=== PATIENT | male | born 2000 | race Caucasian/White ===

== ENCOUNTER 2020-04-10 19:59 | Observation (INO) | payer BC ==
[2020-04-10] MEDS ORDERED: Sodium Chloride 0.9% 1,000 ML IV ONE (20:09)
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
[2020-04-10 20:50] LABS: BLOOD UREA NITROGEN,BUN 15 mg/dL (7.0-18.0); CARBON DIOXIDE,CO2 25.7 mmol/L (21.0-32.0); CHLORIDE,CL 103 mmol/L (98-107); GLUCOSE RANDOM 86 mg/dL (74-106); POTASSIUM,K 4.3 mmol/L (3.5-5.1); SODIUM,NA 142 mmol/L (136-148)
[2020-04-10] MEDS ORDERED: Sodium Chloride 0.9% 2.5 ML Syringe FLUSH PRN (22:33)
[2020-04-10] MEDS ORDERED: Sodium Chloride 0.9% 10 ML Syringe FLUSH PRN (22:33)
--- NOTE | 2020-04-10 22:34 | EDM.PDOC ---
ED HPI GENERAL MEDICAL PROBLEM - General Chief Complaint: Trauma Stated Complaint: HEAD INJURY - EMS ARRIVAL Time Seen by Provider: 04/10/20 21:08 - History of Present Illness INITIAL COMMENTS - FREE TEXT/NARRATIVE: HISTORY AND PHYSICAL: History of present illness: This is a 19-year-old healthy gentleman who presents the ER today by EMS secondary to a witnessed seizure following head trauma with LOC prior to arrival. Patient reports he is never rollerblading before and he put on his friends rollerblades and fell backwards and struck the back of his head against pavement. This resulted in positive LOC with subsequent seizure activity described as tonic-clonic activity by his friends. Patient was having seizure for approximately 30 to 60 seconds. Upon arrival to the ED EMS reports that the patient is currently alert awake and oriented 3 and back to his baseline. Patient denies any history of prior seizure activity. Patient denies any history of hypertension, diabetes, liver, lung, kidney problems. Patient denies any prior abdominal or chest surgeries. Patient has no known drug allergies. Patient denies any tobacco alcohol or drugs. 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 Tetanus status up-to-date Review of systems: As per history of present illness and below otherwise all systems reviewed and negative. Past medical history: As per history of present illness and as reviewed below otherwise noncontributory. Surgical history: As per history of present illness and as reviewed below otherwise noncontributory. Social history: No reported history of drug or alcohol abuse. Family history: As per history of present illness and as reviewed below otherwise noncontributory. Physical exam: HEENT: Atraumatic, normocephalic, pupils reactive, negative for conjunctival pallor or scleral icterus, mucous membranes moist, throat clear, neck supple, nontender, trachea midline. Lungs: Clear to auscultation, breath sounds equal bilaterally, chest nontender. Heart: S1S2, regular, negative for clicks, rubs, or JVD. Abdomen: Soft, nondistended, nontender. Negative for masses or hepatosplenomegaly. Negative for costovertebral tenderness. Pelvis: Stable nontender. Genitourinary: Deferred. Rectal: Deferred. Extremities: Atraumatic, negative for cords or calf pain. Neurovascular unremarkable. Neuro: Awake, alert, oriented. Cranial nerves II through XII unremarkable. Cerebellum unremarkable. Motor and sensory unremarkable throughout. Exam nonfocal. PRIMARY SURVEY: -A: Intact airway -B: Equal breath sounds bilaterally, CTAB without W/R/R, nonlabored -C: RRR without M/R/G, normal S1/S2, 2+ distal pulses palpable in radials, femorals and DP/PTs bilaterally -D: GCS 15 (E: 4, V: 5, M: 6), HAILE x4 without deficit, sensation grossly intact -E: No rashes, or bruises. With laceration approximately 3 cm to his posterior scalp. SECONDARY SURVEY: -NEURO: A&Ox3, CN II-XII grossly intact, 5/5 strength in bilateral change attendant, plantarflexion and dorsiflexion. Grossly normal sensation x4 extremities. -HEAD: NCAT, no gross palpable skull deformities/tenderness, no periorbital or mastoid ecchymosis. 3 cm laceration posterior scalp -EYES: PERRLA from 3 to 2, tracking, EOMI grossly, sclera noninjected -ENT: No hemotympanum, no epistaxis, no septal hematoma, midface stable to manipulation, no blood in oropharynx, dentition intact no anterior neck injury/ crepitus/tenderness. -NECK: No cervical midline tenderness, no step offs/deformities, trachea midline, no JVD -CHEST: Non-tender, no crepitus, no abrasions/ecchymosis, equal chest movement -ABDOMEN: Soft, non-distended, nontender, no abrasions/ecchymosis -PELVIS: Stable to palpation, nontender, no abrasions/ecchymosis -RECTAL: Deferred -EXTREMITIES: No gross deformities, no abrasions/ecchymosis noted, 2+ radial/ femoral/DP/PT pulses present bilaterally -BACK/SPINE: No step offs/deformities or tenderness to palpation of thoracic/ lumbar spine, no abrasion/ecchymosis noted. Diagnostics: ET scan of head reveals no acute bleed or trauma. CT scan of C-spine reveals no acute fracture or step-off. CBC, CMP, alcohol level all within normal limits. Therapeutics: Patient given Tylenol consistent with his pain. Laceration of scalp sutured in ED. Impression: This is a 19-year-old gentleman who sustained a head injury earlier today resulting in positive LOC and seizure activity that was limited to approximately 1 minute. Patient is currently back to baseline mentation. Given the degree of injury with new onset seizure secondary to trauma, case was discussed with our surgery attending Dr. Orta who is agreed to admit patient for observation. This was discussed with the patient and he is currently in agreement with this plan. Plan: Patient will be admitted for observation Definitive disposition and diagnosis as appropriate pending reevaluation and review of above. head area Pain Score (Numeric/FACES): 5 - Related Data Allergies Allergy/AdvReac Type Severity Reaction Status Date / Time No Known Allergies Allergy Verified 04/10/20 20:05 Home Meds: Home Meds . [No Known Home Meds] 04/10/20 [History] Past Medical History HEENT History: Reports: None Cardiovascular History: Reports: None Respiratory History: Reports: None Gastrointestinal History: Reports: None Genitourinary History: Reports: None Musculoskeletal History: Reports: None Neurological History: Reports: None Psychiatric History: Reports: None Endocrine/Metabolic History: Reports: None Insulin Pump Model and Alarm Service Technician: None Hematologic History: Reports: None Immunologic History: Reports: None Oncologic (Cancer) History: Reports: None Dermatologic History: Reports: None - Infectious Disease History Infectious Disease History: Reports: None - Past Surgical History Head Surgeries/Procedures: Reports: None Social & Family History - Family History Family Medical History: Noncontributory - Tobacco Use Smoking Status *Q: Never Smoker - Recreational Drug Use Recreational Drug Use: No Review of Systems - Review of Systems Review Of Systems: Comprehensive ROS is negative, except as noted in HPI. ED EXAM, GENERAL - Physical Exam Exam: See Below Course - Vital Signs Last Recorded V/S: Last Vital Signs Temp 98.3 F 04/10/20 20:00 Pulse 94 04/10/20 20:00 Resp 18 04/10/20 20:00 BP 142/78 H 04/10/20 20:00 Pulse Ox 98 04/10/20 20:00 - Orders/Labs/Meds Orders: Active Orders 24 hr Category Date Time Status DRUG SCREEN, URINE [URCHEM] Stat Lab 04/10/20 20:07 Ordered UA W/O MICROSCOPIC [URIN] Stat Lab 04/10/20 20:10 Ordered Labs: Laboratory Tests 04/10/20 04/10/20 Range/Units 20:20 20:20 WBC 6.34 (4.0-11.0) K/uL RBC 5.25 (4.50-5.90) M/uL Hgb 16.0 (13.0-17.0) g/dL Hct 47.0 (38.0-50.0) % MCV 89.5 (80.0-98.0) fL MCH 30.5 (27.0-32.0) pg MCHC 34.0 (31.0-37.0) g/dL RDW Std Deviation 39.3 (28.0-62.0) fl RDW Coeff of Zia 12 (11.0-15.0) % Plt Count 201 (150-400) K/uL MPV 10.50 (7.40-12.00) fL Nucleated RBC % 0.0 /100WBC Nucleated RBCs # 0 K/uL Sodium 142 (136-148) mmol/L Potassium 4.3 (3.5-5.1) mmol/L Chloride 103 (98-107) mmol/L Carbon Dioxide 25.7 (21.0-32.0) mmol/L BUN 15 (7.0-18.0) mg/dL Creatinine 1.1 (0.8-1.3) mg/dL Est Cr Clr Drug Dosing 118.56 mL/min Estimated GFR (MDRD) > 60.0 ml/min Glucose 86 (74-106) mg/dL Calcium 9.3 (8.5-10.1) mg/dL Total Bilirubin 0.4 (0.2-1.0) mg/dL AST 32 (15-37) IU/L ALT 33 (14-63) IU/L Alkaline Phosphatase 81 (46-116) U/L Total Protein 7.2 (6.4-8.2) g/dL Albumin 4.2 (3.4-5.0) g/dL Globulin 3.0 (2.6-4.0) g/dL Albumin/Globulin Ratio 1.4 (0.9-1.6) Prolactin 18.8 ng/mL Ethyl Alcohol < 3.0 mg/dL Meds: Medications Discontinued Medications Generic Name Dose Route Start Last Admin Trade Name Freq PRN Reason Stop Dose Admin Sodium Chloride 1,000 mls @ 999 mls/hr 04/10/20 20:09 04/10/20 20:26 Normal Saline IV 04/10/20 21:09 999 mls/hr .Bolus ONE Administration Departure - Departure Time of Disposition: 22:35 Disposition: Admitted As Inpatient 66 Condition: Good Clinical Impression: Concussion with brief (less than one hour) loss of consciousness, Post traumatic seizure, Laceration of scalp - Discharge Information *PRESCRIPTION DRUG MONITORING PROGRAM REVIEWED*: Not Applicable *COPY OF PRESCRIPTION DRUG MONITORING REPORT IN PATIENT ZAIRA: Not Applicable Sepsis Event Note (ED) - Evaluation Sepsis Screening Result: No Definite Risk - Focused Exam Vital Signs: Vital Signs Temp Pulse Resp BP Pulse Ox 04/10/20 20:00 98.3 F 94 18 142/78 H 98 - My Orders Last 24 Hours: My Active Orders 04/10/20 20:07 DRUG SCREEN, URINE [URCHEM] Stat 04/10/20 20:10 UA W/O MICROSCOPIC [URIN] Stat - Assessment/Plan Last 24 Hours: My Active Orders 04/10/20 20:07 DRUG SCREEN, URINE [URCHEM] Stat 04/10/20 20:10 UA W/O MICROSCOPIC [URIN] Stat
--- NOTE | 2020-04-11 07:53 | PCM.HP.2 ---
H&P History of Present Illness - General Date of Service: 04/11/20 Admit Problem/Dx: Admission Diagnosis/Problem Admission Diagnosis/Problem Head injury with loss of consciousness Source of Information: Patient History Limitations: Reports: No Limitations - History of Present Illness Initial Comments - Free Text/Narative: Patient is a 19-year-old gentleman who was roller skating [place] the [employer] [place] with friends. He was not used to skating is going downhill when he lost his balance. He fell and struck his head. Reports from EMS, or that he did have some seizure activity. He was transported by EMS to the hospital for evaluation and was seen in the emergency room. He did have a laceration on the back of his head that was repaired in the emergency room. There was loss of consciousness associated with this. The length of time is unknown. He does remember falling and then the next thing he remembers is being in the ambulance. He has had no further seizure activity while in the hospital. This morning he denies any headache. Symptom Onset Date: 04/10/20 Duration of Symptoms: Reports: Hour(s): Location: Reports: Head Quality: Reports: Dull Severity: Mild Improves with: Reports: Rest Worsens with: Reports: None Context: Denies: Sick Contact, Activity/Exercise, Lifting, Exertion Associated Symptoms: Denies: Confusion, Nausea/Vomiting head area Pain Score (Numeric/FACES): 3 - Related Data Allergies/Adverse Reactions: Allergies Allergy/AdvReac Type Severity Reaction Status Date / Time No Known Allergies Allergy Verified 04/10/20 23:28 Home Medications: Home Meds . [No Known Home Meds] 04/10/20 [History] Past Medical History HEENT History: Reports: None Cardiovascular History: Reports: None Respiratory History: Reports: None Gastrointestinal History: Reports: None Genitourinary History: Reports: None Musculoskeletal History: Reports: None Neurological History: Reports: None Psychiatric History: Reports: None Endocrine/Metabolic History: Reports: None Insulin Pump Model and Electric Organ Inspector And Repairer: None Hematologic History: Reports: None Immunologic History: Reports: None Oncologic (Cancer) History: Reports: None Dermatologic History: Reports: None - Infectious Disease History Infectious Disease History: Reports: None - Past Surgical History Head Surgeries/Procedures: Reports: None HEENT Surgical History: Reports: Other (See Below) Other HEENT Surgeries/Procedures: [place] Tooth Surgery Social & Family History - Family History Family Medical History: Noncontributory - Tobacco Use Smoking Status *Q: Never Smoker - Caffeine Use Caffeine Use: Reports: Soda - Recreational Drug Use Recreational Drug Use: No H&P Review of Systems - Review of Systems: Review Of Systems: See Below General: Denies: Fever, Chills, Malaise HEENT: Denies: Headaches, Hearing Changes, Vertigo, Visual Changes Pulmonary: Denies: Shortness of Breath, Wheezing Cardiovascular: Denies: Chest Pain Gastrointestinal: Reports: No Symptoms Genitourinary: Reports: No Symptoms Musculoskeletal: Reports: No Symptoms Skin: Reports: No Symptoms Psychiatric: Reports: No Symptoms Neurological: Reports: No Symptoms Hematologic/Lymphatic: Reports: No Symptoms Immunologic: Reports: No Symptoms Exam - Exam Exam: See Below - Vital Signs Vital Signs: Last Vital Signs Temp 97.8 F 04/11/20 07:40 Pulse 66 04/11/20 07:40 Resp 18 04/11/20 07:40 BP 106/66 04/11/20 07:40 Pulse Ox 97 04/11/20 07:40 Weight: 142 lb 14.4 oz - Exam Quality Assessment: No: Supplemental Oxygen, Central Line/PICC, Skin Breakdown General: Alert, Oriented, Cooperative HEENT: Conjunctiva Clear, EOMI, Hearing Intact, PERRLA. No: Scleral Icterus Neck: Supple, Trachea Midline Lungs: Clear to Auscultation, Normal Respiratory Effort Cardiovascular: Regular Rate, Regular Rhythm, Normal S1, Normal S2. No: Tachycardia GI/Abdominal Exam: Normal Bowel Sounds, Soft, Non-Tender (Male) Exam: Deferred Rectal (Males) Exam: Deferred Back Exam: Normal Inspection, Full Range of Motion Extremities: Normal Inspection, Normal Range of Motion Peripheral Pulses: 4+: Posterior Tibial (L), Posterior Tibial (R), Dorsalis Pedis (L), Dorsalis Pedis (R) Skin: Warm, Dry, Intact Neurological: Cranial Nerves Intact, Normal Speech, Normal Tone Neuro Extensive - Mental Status: Alert, Oriented x3, Normal Mood/Affect, Normal Cognition, Memory Intact Psychiatric: Alert, Normal Affect, Normal Mood - Patient Data Lab Results Last 24 hrs: Laboratory Results - last 24 hr 04/10/20 04/10/20 04/10/20 Range/Units 20:20 20:20 23:20 WBC 6.34 (4.0-11.0) K/uL RBC 5.25 (4.50-5.90) M/uL Hgb 16.0 (13.0-17.0) g/dL Hct 47.0 (38.0-50.0) % MCV 89.5 (80.0-98.0) fL MCH 30.5 (27.0-32.0) pg MCHC 34.0 (31.0-37.0) g/dL RDW Std Deviation 39.3 (28.0-62.0) fl RDW Coeff of Zia 12 (11.0-15.0) % Plt Count 201 (150-400) K/uL MPV 10.50 (7.40-12.00) fL Nucleated RBC % 0.0 /100WBC Nucleated RBCs # 0 K/uL Sodium 142 (136-148) mmol/L Potassium 4.3 (3.5-5.1) mmol/L Chloride 103 (98-107) mmol/L Carbon Dioxide 25.7 (21.0-32.0) mmol/L BUN 15 (7.0-18.0) mg/dL Creatinine 1.1 (0.8-1.3) mg/dL Est Cr Clr Drug Dosing 118.56 mL/min Estimated GFR (MDRD) > 60.0 ml/min Glucose 86 (74-106) mg/dL Calcium 9.3 (8.5-10.1) mg/dL Total Bilirubin 0.4 (0.2-1.0) mg/dL AST 32 (15-37) IU/L ALT 33 (14-63) IU/L Alkaline Phosphatase 81 (46-116) U/L Total Protein 7.2 (6.4-8.2) g/dL Albumin 4.2 (3.4-5.0) g/dL Globulin 3.0 (2.6-4.0) g/dL Albumin/Globulin Ratio 1.4 (0.9-1.6) Prolactin 18.8 ng/mL Urine Color Urine Appearance Urine pH (5.0-8.0) Ur Specific Keller (1.001-1.035) Urine Protein (NEGATIVE) mg/dL Urine Glucose (UA) (NEGATIVE) mg/dL Urine Ketones (NEGATIVE) mg/dL Urine Occult Blood (NEGATIVE) Urine Nitrite (NEGATIVE) Urine Bilirubin (NEGATIVE) Urine Urobilinogen (<2.0) EU/dL Ur Leukocyte Esterase (NEGATIVE) Urine Opiates Screen NEGATIVE (NEGATIVE) Ur Oxycodone Screen NEGATIVE (NEGATIVE) Urine Methadone Screen NEGATIVE (NEGATIVE) Ur Barbiturates Screen NEGATIVE (NEGATIVE) Ur Phencyclidine Scrn NEGATIVE (NEGATIVE) Ur Amphetamine Screen NEGATIVE (NEGATIVE) U Methamphetamines Scrn NEGATIVE (NEGATIVE) U Benzodiazepines Scrn NEGATIVE (NEGATIVE) U Cocaine Metab Screen NEGATIVE (NEGATIVE) U Marijuana (THC) Screen NEGATIVE (NEGATIVE) Ethyl Alcohol < 3.0 mg/dL 04/10/20 Range/Units 23:20 WBC (4.0-11.0) K/uL RBC (4.50-5.90) M/uL Hgb (13.0-17.0) g/dL Hct (38.0-50.0) % MCV (80.0-98.0) fL MCH (27.0-32.0) pg MCHC (31.0-37.0) g/dL RDW Std Deviation (28.0-62.0) fl RDW Coeff of Zia (11.0-15.0) % Plt Count (150-400) K/uL MPV (7.40-12.00) fL Nucleated RBC % /100WBC Nucleated RBCs # K/uL Sodium (136-148) mmol/L Potassium (3.5-5.1) mmol/L Chloride (98-107) mmol/L Carbon Dioxide (21.0-32.0) mmol/L BUN (7.0-18.0) mg/dL Creatinine (0.8-1.3) mg/dL Est Cr Clr Drug Dosing mL/min Estimated GFR (MDRD) ml/min Glucose (74-106) mg/dL Calcium (8.5-10.1) mg/dL Total Bilirubin (0.2-1.0) mg/dL AST (15-37) IU/L ALT (14-63) IU/L Alkaline Phosphatase (46-116) U/L Total Protein (6.4-8.2) g/dL Albumin (3.4-5.0) g/dL Globulin (2.6-4.0) g/dL Albumin/Globulin Ratio (0.9-1.6) Prolactin ng/mL Urine Color YELLOW Urine Appearance CLEAR Urine pH 7.0 (5.0-8.0) Ur Specific Keller 1.025 (1.001-1.035) Urine Protein NEGATIVE (NEGATIVE) mg/dL Urine Glucose (UA) NEGATIVE (NEGATIVE) mg/dL Urine Ketones NEGATIVE (NEGATIVE) mg/dL Urine Occult Blood NEGATIVE (NEGATIVE) Urine Nitrite NEGATIVE (NEGATIVE) Urine Bilirubin NEGATIVE (NEGATIVE) Urine Urobilinogen 0.2 (<2.0) EU/dL Ur Leukocyte Esterase NEGATIVE (NEGATIVE) Urine Opiates Screen (NEGATIVE) Ur Oxycodone Screen (NEGATIVE) Urine Methadone Screen (NEGATIVE) Ur Barbiturates Screen (NEGATIVE) Ur Phencyclidine Scrn (NEGATIVE) Ur Amphetamine Screen (NEGATIVE) U Methamphetamines Scrn (NEGATIVE) U Benzodiazepines Scrn (NEGATIVE) U Cocaine Metab Screen (NEGATIVE) U Marijuana (THC) Screen (NEGATIVE) Ethyl Alcohol mg/dL Result Diagrams: 04/10/20 20:20 04/10/20 20:20 Sepsis Event Note - Evaluation Sepsis Screening Result: No Definite Risk - Focused Exam Vital Signs: Vital Signs Temp Pulse Resp BP Pulse Ox 04/11/20 07:40 97.8 F 66 18 106/66 97 04/11/20 04:00 99 F 53 L 17 110/58 L 95 04/10/20 23:20 98.4 F 58 L 16 127/76 97 04/10/20 22:30 98 F 73 16 124/75 97 04/10/20 21:00 70 16 121/82 97 04/10/20 20:35 98 F 81 16 117/75 97 04/10/20 20:25 84 16 115/70 98 04/10/20 20:10 91 16 114/62 98 04/10/20 20:00 98.3 F 94 18 142/78 H 98 Date Exam was Performed: 04/11/20 Time Exam was Performed: 07:48 - Problem List (1) Concussion with brief (less than one hour) loss of consciousness SNOMED Code(s): 488572977, 998505451 ICD Code: S06.0X9A - CONCUSSION W LOSS OF CONSCIOUSNESS OF UNSP DURATION, INIT Status: Acute Priority: High Current Visit: Yes (2) Laceration of scalp SNOMED Code(s): 225755108 ICD Code: S01.01XA - LACERATION WITHOUT FOREIGN BODY OF SCALP, INITIAL ENCOUNTER Status: Acute Priority: Medium Current Visit: Yes Qualifiers: Encounter type: initial encounter Qualified Code(s): S01.01XA - Laceration without foreign body of scalp, initial encounter (3) Post traumatic seizure SNOMED Code(s): 33141048, 03043265 ICD Code: R56.1 - POST TRAUMATIC SEIZURES Status: Acute Priority: Medium Current Visit: Yes Problem List Initiated/Reviewed/Updated: Yes Orders Last 24hrs: Active Orders 24 hr Category Date Time Status Admission Status [Patient Status] [ADT] Stat ADT 04/10/20 22:31 Active Regular Diet [DIET] Diet 04/11/20 Breakfast Active Sodium Chloride 0.9% [Saline Flush] Med 04/10/20 22:33 Active 10 ml FLUSH ASDIRECTED PRN Sodium Chloride 0.9% [Saline Flush] Med 04/10/20 22:33 Active 2.5 ml FLUSH ASDIRECTED PRN Saline Lock Insert [OM.PC] Stat Oth 04/10/20 22:33 Ordered Seizure Precautions [OM.PC] Stat Oth 04/10/20 22:33 Ordered Medication Orders Sodium Chloride (Saline Flush) 10 ml FLUSH ASDIRECTED PRN PRN Reason: Keep Vein Open Sodium Chloride (Saline Flush) 2.5 ml FLUSH ASDIRECTED PRN PRN Reason: Keep Vein Open Assessment/Plan Comment:: Patient has done well through the night. No reported seizure activity while in the hospital. Currently denies any headache. Feels like he can go home and would like to be discharged. He does have a family that he is staying with and thus does have someone that can monitor him. He will need to return to have the clips removed from the left occipital region. - Mortality Measure Prognosis:: Good
== END 2020-04-11 09:50 | disposition home or self-care (01) ==
LOC: MW.ED 19:59 → MW.MS 21:00
PROVIDERS: ADMIT Surgery; ATTEND Surgery
DX: S06.0X1A Concussion with loss of consciousness of 30 minutes or less, initial encounter (principal); S01.01XA Laceration without foreign body of scalp, initial encounter; R56.1 Post traumatic seizures; V00.131A Fall from skateboard, initial encounter; Y93.89 Activity, other specified; Y92.830 Public park as the place of occurrence of the external cause
CPT/HCPCS: 12002; 36415; 70450; 70450-26; 72125; 72125-26; 80053; 80305-QW; 80307; 81003; 84146; 85027; 99283; 99285-25; J7030

== ENCOUNTER 2020-04-21 09:43 | Emergency (ER) | payer BC | END 2020-04-21 09:56 | disposition home or self-care (01) | LOC: MW.ED 09:43 | DX: Z53.21 Procedure and treatment not carried out due to patient leaving prior to being seen by health care provider (principal) ==